=== PATIENT | female | born 1985 | race Caucasian/White ===

== ENCOUNTER 2025-04-04 07:27 | Emergency (ER) | payer OTHER, SELFPAY ==
--- OUTSIDE RECORDS SUMMARY | 2024-02-04 08:30 | XMS_ITS ---
Author Organization [facility] Address [address] [place] [address] Care Team Providers Care Security Assurance Specialist Name Role Phone None, No PCP Primary Care Provider Elsi Aviles Unavailable [phone] Radha Manning Unavailable [phone] REASON FOR VISIT possible anxiety depression 1 of 2 Encounters Encounter Location Date Provider Diagnosis [facility] [address] [place], [place] [address]Ramana VERMA [address] [address] 02/04/2024 Radha Manning Plan Of Treatment Next Appt Details Provider Name:Joselin Drake, 04/05/2025 09:15:00 AM, [address] [place], [address], Provider Name:Joselin Drake, 05/10/2025 02:45:00 PM, [address] [place], [address], Provider Name:Joselin Drake, 06/28/2025 08:30:00 AM, [address] [place], [address], Progress Notes * Angela ELDER:1985 ([age] yo F)Acc No.[id number]:02/04/2024 Patient:?Luly ELDER :?Radha Manning MDDOB:1985???Age:38 Y ???Sex:FemaleDate:4Phone:[phone]:[address] [place], [place] [address]Fwu:No PCP None Subjective: * Chief Complaints: * 1 . Possible anxiety depression 1 of 2. * Medical History: Objective: * Vitals: Assessment: Plan: * Treatment: * Images: Billing Information: * Visit Code: * Procedure Codes: * Electronic signature of Radha Manning MD on 04/04/2025 at 08:24 AM CSTSign off status: Pending * Provider: Melany Manning MD Date: 1 Generated for Printing/Faxing/eTransmitting on:?04/04/2025 08:24 AM GIN FEEDER
--- OUTSIDE RECORDS SUMMARY | 2025-03-03 12:55 | XMS_ITS | Encounter Summary ---
Author Organization [facility] Address [address] [place] [address] Care Team Providers Care Patch Machine Operator Name Role Phone David Hernandez MD Unavailable David Hernandez MD Primary Care Provider [phone] Luly Enrique Unavailable Unavailable Teresita Glez APRN, CNP Unavaila ble David Hernandez MD Unavailable Reason for Referral * Medication Prior Authorization - ClosedSpecialtyDiagnoses / ProceduresReferred By ContactReferred To Contact Diagn[place] [address] [place] [address] Phone: tel: fax: Referral IDStatusReasonStart DateExpiration DateVisits RequestedVisits [id number] APPLICATION DEVELOPER Encounter Details DateTypeDepartmentCare Team (Latest Contact Info)Jwczjuyragz00/14/2025 12:55 PM CSTE-Visit [facility] [address] [place] [address] [place] [address] [place] [address] Weight gain; Panic attack Social History Tobacco UseTypesPacks/DayYears UsedDateSmoking Tobacco: NeverPassive Smoke Exposure: NeverSmokeless Tobacco: NeverAlcohol UseStandard Drinks/WeekComments Yes0 (1 standard drink = 0.6 oz pure alcohol)occPHQ-2AnswerDate RecordedPHQ-2 Jfwlw279dolescent EducationAnswerDate RecordedGetting School Help NeededNot on file01/10/2023Food InsecurityAnswerDate RecordedWithin the past 12 months, did you worry that your food would run out before you got money to buy more?No02/12/2023Within the past 12 months, did the food you bought just not last and you didn???t have money to getmore?No02/12/2023Housing StabilityAnswer Date RecordedDo you have housing? (Housing is defined as stable permanent housing and does not include staying outside in a car, in a tent, in an abandoned building, in an overnight care home, or couch-surfing.)Yes02/12/2023re you worried about losing your housing?No02/12/2023Financial Resource Strain AnswerDate RecordedWithin the past 12 months, have you or your family members you live with been unable to get utilities (heat, electricity) when it was really needed?02/12/2023Transportation NeedsAnswerDate RecordedWithin the past 12 months, has lack of transportation kept you from medical appointments, getting your medicines, non-medical meetings or appointments, work, or from getting things that you need?No02/12/2023Interpersonal SafetyAnswerDate Recorded Do you feel physically and emotionally safe where you currently live?Yes 09/05/2024Within the past 12 months, have you been hit, slapped, kicked or otherwise physically hurt by someone?No09/05/2024Within the past 12 months, have you been humiliated or emotionally abused in other ways by your partner or ex-partner?No09/05/2024CommentsNoSex and Gender InformationValueDate RecordedSex Assigned at ZvxhmMlukjl04/20/2022 10:50 AM CDTLegal SexFemale 07/10/2020 8:13 AM CDTGender JlauxkfsAxpvge20/20/2022 10:50 AM CDTSexual OrientationNot on filedocumented as of this encounter Patient Instructions * Patient Instructions* David Hernandez MD - 03/03/2025 12:55 PM HADOOP APPLICATION DEVELOPER I am glad you are doing well. I have refilled your medication: No orders of the defined types were placed in this encounter. View your full visit summary for details by clicking on the link below. Your pharmacist will be able to address any questions you may have about the medication. Thank you for choosing us for your care. OP APPLICATION DEVELOPER documented in this encounter Miscellaneous Notes * Telephone Encounter - David Hernandez MD - 03/03/2025 12:57 PM CST Provider E-Visit time total (minutes): 5 minutes OP APPLICATION DEVELOPER documented in this encounter Plan of Treatment Not on file documented as of this encounter Visit Diagnoses Diagnosis Weight gain Abnormal weight gain Panic attack Panic disorder without agoraphobia documented in this encounter Additional Health Concerns AssessmentNoted TimePHQ-9 Depression Total Score: 9009/05/2024 7:35 AM CDT documented as of this encounter Care Teams Team MemberRelationshipSpecialtyStart [place] [address] [place] [address] PCP - GeneralFadely Vejncthk80/10/21 [place] [address] [place] [address] Assigned PCP12/06/20 Luly Enrique Personal Advocate & Liaison (PAL)01/29/22 Teresita Glez APRN DEWATERER OPERATOR [address] [facility] [address] Nurse PractitionerNeurology07/06/23 [place] [address] [place] [address] Guido Medicine07/06/23documented as of this encounter
--- OUTSIDE RECORDS SUMMARY | 2025-03-24 07:00 | XMS_ITS ---
Author Organization [facility] Address [address] [place] [address] Care Team Providers Care Varnish Thinner Name Role Phone None, No PCP Primary Care Provider Elsi Aviles Unavailable [phone] Mable Negron Unavailable [phone] REASON FOR VISIT HRT Consult Encounters Encounter Location Date Provider Diagnosis [facility] [address] [place] [address] 03/24/2025 Mable Negron Plan Of Treatment Next Appt Details Provider Name:Joselin Drake, 04/05/2025 09:15:00 AM, [address] [place], [address], Provider Name:Joselin Drake, 05/10/2025 02:45:00 PM, [address] [place], [address], Provider Name:Joselin Drake, 06/28/2025 08:30:00 AM, [address] [place], [address], Progress Notes * Angela ELDER:1985 ([age] yo F)Acc No.[id number]:03/24/2025 Patient:?JERROD Luly :?Mable SheldonleDOB:1985???Age:39 Y ???Sex:FemaleDate:03/24/2025Phone:[phone]:[facility] [address] [place], [place] [address]Khm:No PCP None Subjective: * Chief Complaints: * 1 . HRT Consult. * Medical History: Objective: * Vitals: Assessment: Plan: * Treatment: * Images: Billing Information: * Visit Code: * Procedure Codes: * Electronic signature of GARRETT [place] on 04/04/2025 at 08:24 AM CARPENTER LABOR SUPERVISOR Sign off status: Pending * Provider: Juan Negron Date: 05/25/2024 Generated for Printing/Faxing/eTransmitting on:?04/04/2025 08:24 AM CARPENTER LABOR SUPERVISOR
[2025-04-04] VITALS (18 sets, daily range): BP systolic 126–136; BP diastolic 78–95; PULSE 68–76; RESP 11–21; TEMP 36.4; O2SAT 99; BMI 26.6
--- NOTE | 2025-04-04 08:08 | ED.GENADULT ---
HPI - General Adult General Chief complaint: Dizziness/Vertigo Stated complaint: dizzy, nausea Time Seen by Provider: 04/04/25 07:51 Source: patient Mode of arrival: ambulatory Limitations: no limitations History of Present Illness HPI narrative: 39-year-old female presenting today not feeling well. States that this is day 4. As she complains of feeling lightheaded, dizzy, fatigued. Today she developed nausea. No vomiting. She denies any fevers per states she had cold symptoms last week but they resolved. She states that she just wants to sleep feeling better all day, has no energy. When she does stand up she feels very lightheaded and off balance. She denies any vertiginous symptoms. She denies a headache. She states that every now and then she feels that maybe she has double vision. She states that she also has ringing in her ears but this is not new for her. She denies pain or pressure in her ears. No sore throat. She is not coughing. She is not short of breath. She denies abdominal pain. No urinary symptoms. No diarrhea. Past medical history significant for anxiety, depression, long COVID, chronic fatigue. Her medications were reviewed. Related Data Home Medications ?Medication ?Instructions ?Recorded ?Confirmed gabapentin 100 mg capsule 200 mg PO DAILY 04/04/25 04/04/25 lorazepam 2 mg tablet (Ativan) 2 mg PO Q6H PRN 04/04/25 04/04/25 phentermine 30 mg capsule 30 mg PO DAILY 04/04/25 04/04/25 trazodone 50 mg tablet 50 mg PO DAILY 04/04/25 04/04/25 venlafaxine 75 mg tablet 150 mg PO DAILY 04/04/25 04/04/25 Previous Rx's ?Medication ?Instructions ?Recorded meclizine 25 mg tablet 25 mg PO BID PRN #14 tabs 04/04/25 Allergies Allergy/AdvReac Type Severity Reaction Status Date / Time No Known Drug Allergies Allergy Verified 04/04/25 10:00 Review of Systems Status of ROS: Reports: 10 or more systems reviewed and unremarkable except as noted in History and below Exam Narrative: Exam Narrative: Well-nourished well-developed patient in no acute distress. Alert and oriented. Answers questions appropriately. Mood and affect are appropriate. Thoughts are goal oriented and rational. No tangential or magical thinking noted. Patient speaks in full sentences without needing to catch her breath. HEENT: Normocephalic atraumatic. Pupils are equally round reactive to light. Extraocular muscles are intact. Conjunctivae are moist without any icterus noted. Moist mucous membranes. Posterior pharynx is normal. Neck is soft without any lymphadenopathy or thyromegaly. Delete the Cardiovascular: Heart is regular rate and rhythm S1 and S2 are present without any murmurs. Lungs: Clear to auscultation bilaterally no wheezes rhonchi or rales are appreciated. Patient takes deep breaths without any discomfort. Abdomen: Soft and nontender nondistended with normal bowel sounds. Extremities: Bilateral lower extremities are without edema. Skin: Well perfused without any obvious rashes. Strength is 5/5 of the upper and lower extremities. Reflexes are 2+ and symmetric at the knees. Romberg sign is negative. Cranial nerves 3-12 are normal. Usasqv-zi-hpyv is normal. Ivgj-hm-ojuh is normal. There is no nystagmus either horizontally or vertically. Gait is normal. Const: Vital Signs, click to edit/add: Vital Signs - 24 hr 04/04/25 07:30 04/04/25 08:00 04/04/25 08:46 Temperature 97.5 F L Pulse Rate Pulse Rate [Pulse Oximeter] 76 Respiratory Rate 20 14 Blood Pressure Blood Pressure [Ri ght Upper Arm] 135/95 H Pulse Oximetry 99 99 Oxygen Delivery Me thod Room Air 04/04/25 08:54 Temperature Pulse Rate 68 Pulse Rate [Pulse Oximeter] Respiratory Rate 14 Blood Pressure 132/87 Blood Pressure [Ri ght Upper Arm] Pulse Oximetry Oxygen Delivery Sd thod Course Course ED Course: differential diagnoses includes viral infection, flare up of long COVID symptoms, mononucleosis. Without a headache, no vertigo and no neurologic deficits this is less likely to be stroke related. Blood work was unremarkable. EKG, read by me, shows normal sinus rhythm with a pulse of 62. Normal [place], QRS and QTC intervals. we did start an IV and patient received a L of normal saline and IV Zofran. Patient stated that she did not feel any better after treatment. We discussed next steps including close monitoring in the patient is very concerned about this, she is quite concerned that there is something more going on that we are missing. We discussed doing a head CT and CTA and the likelihood of that pain positive being low but the patient would like to proceed. CT head unremarkable. Vital Signs Vital signs: Initial Vital Signs Temperature 97.5 F L 04/04/25 07:30 Temperature Source Temporal Artery Scan 04/04/25 07:30 Pulse Rate 76 04/04/25 07:30 Respiratory Rate 20 04/04/25 07:30 Blood Pressure 135/95 H 04/04/25 07:30 Blood Pressure Mean 108 H 04/04/25 07:30 Blood Pressure Position Sitting 04/04/25 07:30 Pulse Oximetry 99 04/04/25 07:30 Oxygen Delivery Method Room Air 04/04/25 07:30 Vital Signs Temperature 97.5 F L 04/04/25 07:30 Pulse Rate 76 04/04/25 07:30 Respiratory Rate 20 04/04/25 07:30 Blood Pressure 135/95 H 04/04/25 07:30 Pulse Oximetry 99 04/04/25 07:30 Oxygen Delivery Method Room Air 04/04/25 07:30 Temperature 97.5 F L 04/04/25 07:30 Pulse Rate 68 04/04/25 08:54 Respiratory Rate 14 04/04/25 08:54 Blood Pressure 132/87 04/04/25 08:54 Pulse Oximetry 99 04/04/25 08:00 Oxygen Delivery Method Room Air 04/04/25 07:30 Medications Administered Medications: Discontinued Medications Generic Name Dose Route Start Last Admin Trade Name Freq PRN Reason Stop Dose Admin Sodium Chloride 1,000 mls @ 1,000 mls/hr 04/04/25 08:00 04/04/25 09:21 0.9 % Sodium Chloride 1000 Ml IV 04/04/25 08:59 Infused .Q1H ZORA Infusion Ondansetron HCl 4 mg 04/04/25 07:59 04/04/25 08:35 Ondansetron 2 Mg/Ml Inj IVP 04/04/25 08:00 4 mg ONCE ONE Administration Medical Decision Making MDM Narrative Medical decision making narrative: 39-year-old female, dizzy, fatigue. We discussed the possibility of continued long COVID symptoms. This we discussed the possibility of another viral infection causing her symptoms. Recommend fluids, rest, Tylenol. Patient requesting meclizine which I will go ahead and prescribed. Follow-up with primary care. Lab Data Lab results reviewed: Yes I reviewed the patient's lab results Labs: Lab Results 04/04/25 04/04/25 Range/Units 08:25 09:00 WBC 6.42 (4.50-11.00) K/uL RBC 5.00 (4.00-5.20) m/uL Hgb 14.7 (12.0-16.0) gm/dL Hct 46.2 (33.0-51.0) % MCV 92 (80-100) fL MCH 29 (26-34) pg MCHC 32 (32-36) gm/dL RDW Coeff of Bryan 11.9 (11.5-15.5) % Plt Count 278 (140-440) K/uL Neut % (Auto) 72.6 H (42.0-72.0) % Lymph % (Auto) 15.0 L (20-44) % Kittson % (Auto) 7.2 (0.0-11.0) % Eos % (Auto) 5.0 (0.0-7.0) % Baso % (Auto) 0.2 (0.0-3.0) % Neut # (Auto) 4.70 (1.7-7.0) K/uL Lymph # (Auto) 1.00 (0.90-2.90) K/uL Kittson # (Auto) 0.50 (0.00-0.90) K/UL Eos # (Auto) 0.32 (0.00-0.50) K/uL Baso # (Auto) 0.01 (0.00-0.30) K/uL Abs Immat Gran (auto) 0.00 (0.00-0.30) K/uL Imm/Tot Granulo (auto) 0.0 % Sodium 137 (135-149) mmol/L Potassium 4.1 (3.6-5.1) mmol/L Chloride 106 (96-114) mmol/L Carbon Dioxide 24 (20-32) mmol/L Anion Gap 7 (7-15) mEq/L BUN 20 (5-24) mg/dL Creatinine 0.9 (0.5-1.5) mg/dL Estimated Creat Clear 77.01 Estimated GFR 82 ml/min Glucose 99 (60-115) mg/dL Lactate 0.9 (0.5-1.9) mmol/L Calcium 8.6 (8.4-10.6) mg/dL Magnesium 2.2 (1.5-2.6) mg/dL Total Bilirubin 0.6 (0.1-1.5) mg/dL Direct Bilirubin 0.2 (0.0-0.5) mg/dL AST 31 (12-35) U/L ALT 18 (4-35) U/L Alkaline Phosphatase 54 (40-150) U/L Troponin I < 0.01 (0.01-0.04) ng/mL C-Reactive Protein < 0.5 L (0.5-1.0) mg/dL Total Protein 7.2 (6.0-8.3) g/dL Albumin 4.3 (3.3-5.0) g/dL Lipase 189 (23-300) U/L TSH 1.020 (0.270-4.20) uIU/mL Urine Color Yellow (Yellow) Urine Appearance Clear (Clear) Urine pH 7.0 (5.0-8.5) Ur Specific Colon 1.020 (1.000-1.030) Urine Protein Negative (Negative) Urine Glucose (UA) Negative (Negative) Urine Ketones Negative (Negative) Urine Blood Trace-intact A (Negative) Urine Nitrite Negative (Negative) Urine Bilirubin Negative (Negative) Urine Urobilinogen 0.2 (0.2-1.0) Ur Leukocyte Esterase Negative (Negative) Urine RBC 0-2 (0-2) Urine WBC 0-2 (0-5) Ur Squamous Epith Cells Moderate A (None-Few) Urine Bacteria Few A (None) Urine Yeast Few A (None) Urine HCG, Qual Negative (Negative) SARS-CoV-2 (PCR) Negative SARS-CoV-2 (Negative) Monoscreen Negative (Negative) Influenza Type A (PCR) Negative PCR FLU A (Negative) Influenza Type B (PCR) Negative PCR FLU B (Negative) Imaging Data CT scan - head: Attestation: I have reviewed the pertinent imaging results. Radiologist's impression: TECHNIQUE: CT head without contrast. COMPARISON: None. FINDINGS: CSF spaces: Within normal limits for age. Brain parenchyma and extra-axial spaces: The mcdonald-white differentiation is maintained. No sign of mass, hemorrhage, or midline shift. No extra-axial fluid collection. Skull base and calvarium: The mastoid air cells are clear. Scattered mild paranasal sinus mucosal thickening and small mucous retention cysts. The visualized orbits are grossly unremarkable. No skull fractures. IMPRESSION: No acute intracranial abnormality. ECG Data Attestation: I personally reviewed and interpreted this ECG as follows: Discharge Plan Discharge Clinical Impression: Dizziness, Fatigue Patient Disposition: Home, Self-Care Condition: Stable Additional Instructions: Make sure to stay well hydrated, rest when needed. Meclizine sent to the pharmacy. follow-up with your primary care provider in 24-72 hours. Prescriptions: New meclizine 25 mg tablet 25 mg PO BID PRNQty: 14 0RF No Action venlafaxine 75 mg tablet 150 mg PO DAILY gabapentin 100 mg capsule 200 mg PO DAILY trazodone 50 mg tablet 50 mg PO DAILY lorazepam [Ativan] 2 mg tablet 2 mg PO Q6H PRN phentermine 30 mg capsule 30 mg PO DAILY Rx Instructions: must administer 2 hours after breakfast Follow Up/Referrals: Provider,Not a Local [Primary Care Provider, Family Practice] Stand Alone Forms: Stitch Fix Info Instructions
--- OUTSIDE RECORDS SUMMARY | 2025-04-04 08:24 | XMS_ITS | Patient Health Record ---
Author Organization [facility] Address [address] [place] [address] Care Team Providers Care Rail Car Operator Name Role Phone None, No PCP Primary Care Provider Elsi Aviles Unavailable [phone] Mable Negron Unavailable [phone] Allergies No Known Allergies Reason For Referral No Information Medications Medication SIG (Take, Route, Frequency, Duration) Notes Start Date End Date Status Tylenol Not-TakingMirena (52 MG) 20 MCG/DAYas directed Intrauterineinserted in 2016 ActivealbuterolNot-TakingEffexor XRNot-Hicopumzkisznif84wlTayukaFuqwyqqxvd654um Active Social History Tobacco Use: Social History Observation Description Date Details (start date - stop date) Never Smoker NA - NA Tobacco Use/Smoking Question Answer Notes Are you a nonsmoker Plan Of Treatment Next Appt Details Provider Name:Joselin Drake, 04/05/2025 09:15:00 AM, [address] [place], [address], Provider Name:Joselin Drake, 05/10/2025 02:45:00 PM, [address] [place], [address], Provider Name:Joselin Drake, 06/28/2025 08:30:00 AM, [address] [place], [address], Insurance Providers Payer Name Payer Address Payer Phone Subscriber Number Group Number Insured Name Patient Relationship to Insured Coverage Start Date Coverage End Date [employer] (Ins. Bill) [address] [address] [place], [place] [id number], [employer] - patient is the [id number] 2021 Medical (General) History Medical History History ICD Code Anxiety/Depression InsominaBlood Clots in Legs / LungsMigrainesSurgical History Surgery Date(Month/Year) Woden Teeth
--- OUTSIDE RECORDS SUMMARY | 2025-04-04 08:24 | XMS_ITS | Clinical Summary ---
Author Organization [facility] Address [address] [place] [address] Care Team Providers Care Rock Crusher Name Role Phone David Hernandez MD Unavailable David Hernandez MD Primary Care Provider [phone] Luly Enrique Unavailable Unavailable Teresita Glez APRN, CNP Unavaila ble David Hernandez MD Unavailable Allergies No known active allergies Medications MedicationSigDispense QuantityRefillsLast FilledStart DateEnd DateStatus albuterol (PROAIR HFA/PROVENTIL HFA/VENTOLIN HFA) 108 (90 Base) MCG/ACT inhaler Indications:Post-COVID chronic coughInhale 2 puffs into the lungs every 4 hours as needed for shortness of breath or wheezing 18 g 3Active atorvastatin (LIPITOR) 10 MG tablet Indications:Mixed hyperlipidemiaTake 1 tablet (10 mg) by mouth daily. 90 tablet 5Active traZODone (DESYREL) 50 MG tablet Indications:Insomnia, unspecified typeTake 1 tablet (50 mg) by mouth at bedtime. 90 tablet 5Active venlafaxine (EFFEXOR XR) 150 MG 24 hr capsule Indications:Major depressive disorder, single episode, mildTake 1 capsule (150 mg) by mouth daily. 90 capsule 5Active propranolol (INDERAL) 20 MG tablet Indications:Panic attackTake 1 tablet (20 mg) by mouth every morning. 90 tablet 5Active phentermine (ADIPEX-P) 37.5 MG tablet Indications:Weight gainTake 1 tablet (37.5 mg) by mouth every morning (before breakfast). 30 tablet 5Active LORazepam (ATIVAN) 0.5 MG tablet Indications:Panic attackTake 1 tablet (0.5 mg) by mouth five times a week as needed for anxiety. 30 tablet 5Active gabapentin (NEURONTIN) 100 MG capsule Indications:Post-COVID syndromeTAKE 1 CAPSULE BY MOUTH THREE TIMES A DAY 90 capsule 5Active gabapentin (NEURONTIN) 100 MG capsule Indications:Post-COVID syndromeTake 1 capsule (100 mg) by mouth 3 times daily. 90 capsule Discontinued Active Problems ProblemNoted DateDiagnosed DateMajor depressive disorder, single episode, mild 08/18/2023 Resolved Problems ProblemNoted DateDiagnosed DateResolved DatePulmonary embolism with infarction Encounters DateTypeDepartmentCare IlbgTjeqoupmiyu50/12/2025Refill [facility] [address] [place] [address] David Hernandez MD Medication Gqwfek4203/13/2025[facility] Medical Advice [facility] [address] [place] [address] Corrine Morelos 03/11/2025Refill [facility] [address] [place] [address] David Hernandez MD Medication Ptunkc2703/03/2025 12:55 PM CSTE-Visit [facility] [address] [place] [address] David Hernandez MD Weight gain; Panic mvfmva4303/03/2025[facility] Advice [facility] [address] [place] [address] Radha Fuentes MA 03/03/2025Refill [facility] [address] [place] [address] David Hernandez MD Medication Refillfrom Last 3 Months Immunizations ImmunizationAdministration DatesNext DueCOVID-19 MONOVALENT 12+ (Pfizer) 01/12/2021,12/22/2020Influenza Vaccine >6 months,quad, PF02/05/2022TDAP (Adacel,Boostrix)08/18/2023 Family History Medical HistoryRelationCommentsDiabetesFatherHeart DiseaseFatherHypertension FatherRelationStatusCommentsFatherAliveMotherAliveSisterAlive Social History Tobacco UseTypesPacks/DayYears UsedDateSmoking Tobacco: NeverPassive Smoke Exposure: NeverSmokeless Tobacco: Never Tobacco Cessation:Counseling Given: Not Answered Alcohol UseStandard Drinks/WeekCommentsYes0 (1 standard drink = 0.6 oz pure alcohol)occPHQ-2AnswerDate RecordedPHQ-2 Kwwwz477dolescent Education AnswerDate RecordedGetting School Help NeededNot on file01/10/2023Food InsecurityAnswerDate RecordedWithin the past 12 months, did you worry that your food would run out before you got money to buy more?No02/12/2023Within the past 12 months, did the food you bought just not last and you didn???t have money to getmore?No02/12/2023Housing StabilityAnswerDate RecordedDo you have housing? (Housing is defined as stable permanent housing and does not include staying ou tside in a car, in a tent, in an abandoned building, in an overnight group home, or couch-surfing.)Yes02/12/2023re you worried about losing your housing?No 02/12/2023Financial Resource StrainAnswerDate RecordedWithin the past 12 months, have you or your family members you live with been unable to get utilities (heat, electricity) when it was really needed?No02/12/2023Transportation Needs AnswerDate RecordedWithin the past 12 months, has lack of transportation kept you from medical appointments, getting your medicines, non-medical meetings or appointments, work, or from getting things that you need?No02/12/2023 Interpersonal SafetyAnswerDate RecordedDo you feel physically and emotionally safe where you currently live?Yes09/05/2024Within the past 12 months, have you been hit, slapped, kicked or otherwise physically hurt by someone?No09/05/2024 Within the past 12 months, have you been humiliated or emotionally abused in other ways by your partner or ex-partner?No09/05/2024CommentsNoSex and Gender InformationValueDate RecordedSex Assigned at EfukqBalyww64/20/2022 10:50 AM CDTLegal EkiQrvwjr52/23/2021 8:13 AM CDTGender PlhqfgmsTgencz27/20/2022 10:50 AM CDTSexual OrientationNot on file Last Filed Vital Signs Vital SignReadingTime TakenCommentsBlood Uvshlcvl435/90009/05/2024 9:43 AM CDT Sefqo657909/05/2024 9:43 AM HNODlcprhqcwgd33.8 ??C (98.3 ??F)09/05/2024 9:43 AM CDTRespiratory Ainu751809/05/2024 9:43 AM CDTOxygen Cobcypixdi005%09/05/2024 9:43 AM CDTInhaled Oxygen Concentration--Roodgp87.3 kg (159 lb 4.8 oz)09/05/2024 9:43 AM XXRJgespm307.6 cm (5' 6)09/05/2024 9:43 AM CDTBody Mass Index25.71009/05/2024 9:43 AM CDT Plan of Treatment Health MaintenanceDue DateLast DoneCommentsADVANCE CARE KYCLHOEA26/18/1984 DEPRESSION ACTION PLAN1983MAMMO RZHWQCEUB68/18/1984HEPATITIS B VACCINE (1 of 3 - 19+ 3-dose series)07/05/20021837EGOMR47, 02/27/2021YEARLY PREVENTIVE VISIT/, 05/27/2012NNUAL REVIEW OF HM ORDERS , 02/04/2022OVID-19 VACCINE ( season)2024 02/05/2022, 01/12/2021, 12/22/2020INFLUENZA VACCINE (#1)51 DIABETES IMMFZMLPB81, 02/27/2021, 1PHQ-9105/08/2024 09/05/2024, 08/18/2023, 02/12/2023, Additional history existsHPV TEST03/04/2027 03/04/2022, 03/04/2022PAP17105/04/2021, 03/04/2022, 03/04/2022ZOSTER VACCINE (1 of 2)4DTAP/TDAP/TD VACCINE (2 - Td or Tdap)08/17/2033 08/18/2023HEPATITIS C SCREENINGDiscontinuedHIV SCREENINGDiscontinuedHPV VACCINE (No Doses Required)CompletedMENINGITIS VACCINEAged OutNo longer eligible based on patient's age to complete this topicPNEUMOCOCCAL VACCINE: PEDIATRICS (0 to 5 YEARS) AND AT-RISK PATIENTS (6 to 49 YEARS)Aged OutNo longer eligible based on patient's age to complete this topic Procedures Procedure NamePriorityDate/TimeAssociated DiagnosisCommentsABSTRACT PAP ([facility] EXTERNAL RESULT)Juvshur3703/04/2022 4:03 PM IMMIGRATION INVESTIGATOR ABSTRACT HPV ([facility] EXTERNAL RESULT)Qzsssph9403/04/2022 4:03 PM IMMIGRATION INVESTIGATOR COMPREHENSIVE METABOLIC KLIVKMpwmmlj82/18/2022 8:47 AM CDT 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 concentration deficit Post-COVID chronic decreased mobility and endurance Post-COVID chronic fatigue Post-COVID chronic headache Vitamin D deficiency Long COVID LIPID REFLEX TO DIRECT LDL MFXSSOnzamns23/18/2022 8:47 AM CDT Post-COVID syndrome from Last 3 Months or Most Recently Relevant to Health Maintenance Results * Abstract HPV ([facility] External Result) (03/04/2022 4:03 PM IMMIGRATION INVESTIGATOR)ComponentValueRef RangeTest MethodAnalysis TimePerformed AtPathologist SignatureHPV AbstractSee Scanned DocumentQUEST SCHAUMBURGSpecimen (Source)Anatomical Location / LateralityCollection Method / VolumeCollection TimeReceived Time03/04/2022 4:03 PM IMMIGRATION INVESTIGATOR Narrative [facility] [place] - 03/04/2022 4:03 PM IMMIGRATION INVESTIGATOR [facility] RESULT Authorizing ProviderResult TypeResult StatusProvider OutsideLAB - [facility] EXTERNAL RESULTFinal ResultPerforming OrganizationAddressCity/State/ZIP CodePhone Number RODNEY BERGERON [address] [place] [address] * Abstract PAP ([facility] External Result) (03/04/2022 4:03 PM IMMIGRATION INVESTIGATOR)ComponentValueRef RangeTest MethodAnalysis TimePerformed AtPathologist SignaturePAP-ABSTRACTSee Scanned DocumentQUEST SCHAUMBURGSpecimen (Source)Anatomical Location / LateralityCollection Method / VolumeCollection TimeReceived Time03/04/2022 4:03 PM IMMIGRATION INVESTIGATOR Narrative [facility] HEARN[place] - 03/04/2022 4:03 PM IMMIGRATION INVESTIGATOR [facility] RESULT Authorizing ProviderResult TypeResult StatusProvider OutsideLAB - [facility] EXTERNAL RESULTFinal ResultPerforming OrganizationAddressCity/State/ZIP CodePhone Number RODNEY BERGERON [address] [place] [address] * (ABNORMAL) Lipid panel reflex to direct LDL Fasting (02/04/2022 8:47 AM CDT) ComponentValueRef RangeTest MethodAnalysis TimePerformed AtPathologist ClehritdqBfqfsozgmno348(H)<200 mg/dL02/04/2022 5:25 PM CDTOX LABORATORY Zgwdjrzlectjt62<150 mg/dL02/04/2022 5:25 PM CDTOX LABORATORYDirect Measure HDL 68>=50 mg/dL02/04/2022 5:25 PM CDTOX LABORATORYLDL Cholesterol Vkzqsrdafp069 (H)<=100 mg/dL02/04/2022 5:25 PM CDTOX LABORATORYNon HDL Nrbxwzunbtz368(H)<130 mg/dL02/04/2022 5:25 PM CDTOX LABORATORYPatient Fasting > 8hrs?Unknown 02/04/2022 5:25 PM CDTOX LABORATORYSpecimen (Source)Anatomical Location / LateralityCollection Method / VolumeCollection TimeReceived TimeBloodBLOOD SPECIMEN / UnknownVenipuncture / Haqxxcv0002/04/2022 8:47 AM CDT1 8:47 AM CDT Narrative LABORATORY - 02/04/2022 5:25 PM CDT Cholesterol Desirable: <200 mg/dL Triglycerides Normal: ??Less than 150 mg/dL Borderline High: ??150-199 mg/dL High: ??200-499 mg/dL Very High: ??Greater than or equal to 500 mg/dL Direct Measure HDL Female: ??Greater than or equal to 50 mg/dL Male: ??Greater than or equal to 40 mg/dL LDL Cholesterol Desirable: <100mg/dL Above Desirable: ??100-129 mg/dL Borderline High: ??130-159 mg/dL High: ??160-189 mg/dL Very High: >= 190 mg/dL Non HDL Cholesterol Desirable: ??130 mg/dL Above Desirable: ??130-159 mg/dL Borderline High: ??160-189 mg/dL High: ??190-219 mg/dL Very High: ??Greater than or equal to 220 mg/dL Authorizing ProviderResult TypeResult StatusDavid Hernandez MDLAB - BLOOD ORDERABLES Final ResultPerforming OrganizationAddressCity/State/ZIP CodePhone Number [facility] [address] Lab (no room number, 1st floor of clinic) [place] [address], [facility] [phone] * Comprehensive metabolic panel (02/04/2022 8:47 AM CDT)ComponentValueRef Range Test MethodAnalysis TimePerformed AtPathologist IukxlmnohAixxlp882496 - 144 mmol/L1 5:24 PM CDTOX LABORATORYPotassium (POCT)4.23.4 - 5.3 mmol/L 02/04/2022 5:24 PM CDTOX LABORATORYChloride (POCT)31828 - 109 mmol/L1 5:24 PM CDTOX LABORATORYCarbon Dioxide (CO2) (POCT)2320 - 32 mmol/L1 5:24 PM CDTOX LABORATORYAnion Gap (POCT)83 - 14 mmol/L1 5:24 PM CDTOX LABORATORYUrea Nitrogen (POCT)177 - 30 mg/dL02/04/2022 5:24 PM CDTOX LABORATORYCreatinine0.790.52 - 1.04 mg/dL02/04/2022 5:24 PM CDTOX LABORATORY Calcium8.98.5 - 10.1 mg/dL02/04/2022 5:24 PM CDTOX LABORATORYGlucose (POCT)89 70 - 99 mg/dL02/04/2022 5:24 PM CDTOX LABORATORYAlkaline Nihcjjqmoiz7397 - 150 U/L1 5:24 PM CDTOX EJOUQXKSOAIKN428 - 45 U/L1 5:24 PM CDTOX OCJIBLWRVAUKB382 - 50 U/L1 5:24 PM CDTOX LABORATORYProtein Total7.9 6.8 - 8.8 g/dL02/04/2022 5:24 PM CDTOX LABORATORYAlbumin (POCT)4.53.4 - 5.0 g/dL02/04/2022 5:24 PM CDTOX LABORATORYBilirubin Total0.40.2 - 1.3 mg/dL 02/04/2022 5:24 PM CDTOX LABORATORYGFR Estimate>90>60 mL/min/1.52s11802/04/2022 5:24 PM CDTOX LABORATORYComment:Effective April 09, 2021 eGFRcr in adults is calculated using the 2020 CKD-EPI creatinine equation which includes age and gender (Jeff et al., NEJM, DOI: 10.1056/LHELbc0539685)Specimen (Source) Anatomical Location / LateralityCollection Method / VolumeCollection Time Received TimeBloodBLOOD SPECIMEN / UnknownVenipuncture / Fijhbsk7302/04/2022 8:47 AM CDT1 8:47 AM CDT Narrative Authorizing ProviderResult TypeResult StatusSaramandeep Navas MDLAB - BLOOD ORDERABLESFinal ResultPerforming OrganizationAddressCity/State/ZIP CodePhone Number [facility] [address] Lab (no room number, 1st floor of clinic) [place] [address], [facility] [phone] from Last 3 Months or Most Recently Relevant to Health Maintenance Insurance Care Teams Team MemberRelationshipSpecialtyStart [place] [address] [place] [address] PCP - GeneralFamily Peumvycj99/10/21 [place] [address] [place] [address] Assigned PCP12/06/20 Luly Enrique Personal Advocate & Liaison (PAL)01/29/22 Teresita Glez APRN UPPER AND BOTTOM LACER HAND [address] [facility] [address] Nurse PractitionerNeurology07/06/23 [place] [address] [place] [address] Guido Leiva07/06/23
--- OUTSIDE RECORDS SUMMARY | 2025-04-04 08:24 | XMS_ITS | Clinical Summary ---
Author Organization [facility] Address [address] [place] [address] Care Team Providers Care Milliner Helper Name Role Phone Pcp, No Primary Care Provider Unavailabl e Medications MedicationSigDispense QuantityRefillsLast FilledStart DateEnd DateStatus gabapentin (NEURONTIN) 100 mg capsule Take 100 mg by mouth three times daily.5Active phentermine (ADIPEX-P) 37.5 mg tablet Take 37.5 mg by mouth.5Active venlafaxine (EFFEXOR XR) 150 mg Extended-Release capsule Take 150 mg by mouth.5Active traZODone (DESYREL) 50 mg tablet Take 50 mg by mouth at bedtime.5Active LORazepam (ATIVAN) 0.5 mg tab Take 0.5 mg by mouth one time if needed.5Active Active Problems No known active problems Encounters DateTypeDepartmentCare QdbmLqgfsriiyxa10/15/2025Telephone [facility] [address] [place], [place] [phone] Lizbet Roman PA Dizziness (Triage)03/11/2025 1:30 PM CSTOffice Visit [facility] [place] [address] [place] [address] Vanesa Darby NP Finger Loukmutosu33/22/2025Travelfrom Last 3 Months Social History Tobacco UseTypesPacks/DayYears UsedDateSmoking Tobacco: NeverSmokeless Tobacco: Never Tobacco Cessation:Counseling Given: Not Answered CommentsUnknownSex and Gender InformationValueDate RecordedSex Assigned at BirthNot on fileLegal HekXgpkjn39/22/2025 1:14 PM CSTGender IdentityNot on fileSexual OrientationNot on file Last Filed Vital Signs Vital SignReadingTime TakenCommentsBlood Pressure--Gigbi742503/11/2025 2:08 PM PRESALES ENGINEER Qzeksgkxikk10.6 ??C (97.8 ??F)03/11/2025 2:08 PM CSTRespiratory Gguk572805/11/2024 2:08 PM CSTOxygen Kjphtpuydx061%03/11/2025 2:08 PM CSTInhaled Oxygen Concentration--Weight--Height--Body Mass Index-- Plan of Treatment DateTypeDepartmentCare Team (Latest Contact Info)Qehfbolemcn21/16/2025 1:25 PM CSTOffice Visit [facility] [place] [address] [facility] [place] [address] [place] [address] [place] [address] Health MaintenanceDue DateLast DoneCommentsTetanus zwfwsdw6307/05/1994Depression screening for age 12+1995HIV for age 15-65007/05/1998BMI (ht and wt on same day) for age 18+07/05/2001Hepatitis C screening for age 18-7907/05/2001Hepatitis B series for 19+ (1 of 3 - 19+ 3-dose series)07/05/2002Pap test for age 21-65 07/05/2004HPV series for age 9-45 (1 - 3-dose SCDM series)07/05/2010COVID-19 vaccine series (2024- season), 01/12/2021, 12/22/2020 Influenza Vaccine (#1)2024Pneumococcal series for age 6-49Aged OutNo longer eligible based on patient's age to complete this topic Insurance * Guarantor: Luly Elder TypeRelation to PatientDate of BirthPhone Billing AddressPersonal/WygoktOiti53/18/1986 [address] [place] [address] [place] [address] Care Teams Team MemberRelationshipSpecialtyStart DateEnd Date Pcp, Jenn GOMEZ - Bipkmfv81/22/25
--- OUTSIDE RECORDS SUMMARY | 2025-04-04 08:24 | XMS_ITS | Patient Health Record ---
Author Organization [facility] Address [address] [id number] Care Team Providers Care Stoneworking Sander Name Role Phone SELECT, PROVIDER Primary Care Provider Unavailab le Reason For Referral No Information Medications Medication SIG (Take, Route, Frequency, Duration) Notes Start Date End Date Status Tylenol 325 MG Tablet 2 tab(s) orally every 4 ho urs prn 08/13/2015Not-TakingAcyclovir 400 MG Tablet1 tab(s) orally 3 times a day; Duration: 5 days05/31/2012Not-TakingCitalopram Hydrobromide 10 MG Tablet1 tab(s) orally once a day02/02/2011Not-TakingOmeprazole 20 MG Capsule Delayed Release1 cap(s) orally once a day07/30/2015Not-TakingMirtazapine 15 MG Tablet1 tab(s) orally once a day (at bedtime); Duration: 30 day(s)08/20/2016Not-Taking Social History Social History Additional DetailsCategorySocial InfoOptionsDetailsSocial HistoryOccupation: full-time at [employer] accountingAlcohol:rareExercise:yesCaffeine:noMarital StatusMarried (Wilbert), 2 childrenPrimary language spoken:EnglishSeat belt use: yes, 100 %Do you feel safeyesLiving Situationlives with spouse and childrenRace /White Problems Problem Type SNOMED Code ICD Code Onset Dates Problem Status W/U Status Risk Notes Problem Major depression, si ngle episode (59016266) Major depression, single episode NOS (296.20) ActiveconfirmedProblemPulmonary embolism with infarction (5570880884455) Pulmonary embolism and infarction, other (415.19)ActiveconfirmedProblemLong-term current use of anticoagulant (188385740)Encounter for long-term (current) use of anticoagulants (V58.61)ActiveconfirmedProblemAnxiety (42387361)Anxiety (F41.9) ActiveconfirmedProblemChronic fatigue syndrome (09299538)Chronic fatigue (R53.82)Activeconfirmed Plan Of Treatment No Information Insurance Providers Payer Name Payer Address Payer Phone Subscriber Number Group Number Insured Name Patient Relationship to Insured Coverage Start Date Coverage End Date [employer] PAS[employer]ORT [address] [address] [place] [address] [id number] Wilbert Elder Spouse - patient is the spouse of the insured 6 Medical (General) History Medical History History ICD Code Depression Pulmonary emboli, unknown etiology with negative workup, 2009, evaluated by hematologyMirena IUD - placed 12/2008Hospitalization History Reason Date(Month/Year) childbirth pulmonary emboli07/28
--- OUTSIDE RECORDS SUMMARY | 2025-04-04 08:25 | XMS_ITS | Encounter Summary ---
Author Organization [facility] Address [address] [place] [address] Care Team Providers Care Wood Drilling Machine Operator Name Role Phone David Hernandez MD Unavailable David Hernandez MD Primary Care Provider [phone] Luly Enrique Unavailable Unavailable Teresita Glez APRN, CNP Unavaila ble David Hernandez MD Unavailable Reason for Visit * ReasonCommentsMedication Refill Encounter Details DateTypeDepartmentCare Team (Latest Contact Info)Twmxmadgzun43/14/2025Jose Manuel Martin [facility] [address] [place] [address] [place] [address] [place] [address] Medication Refill Social History Tobacco UseTypesPacks/DayYears UsedDateSmoking Tobacco: NeverPassive Smoke Exposure: NeverSmokeless Tobacco: NeverAlcohol UseStandard Drinks/WeekComments Yes0 (1 standard drink = 0.6 oz pure alcohol)occPHQ-2AnswerDate RecordedPHQ-2 Gdboq224dolescent EducationAnswerDate RecordedGetting School Help NeededNot on file01/10/2023Food [...] in an abandoned building, in an overnight intermediate, or couch-surfing.)Yes02/12/2023re you worried about losing your housing?No02/12/2023Financial Resource Strain AnswerDate RecordedWithin the past 12 months, have you or your family members you live with been unable to get utilities (heat, electricity) when it was really needed?No02/12/2023Transportation NeedsAnswerDate RecordedWithin the past 12 months, has [...] ex-partner?No09/05/2024CommentsNoSex and Gender InformationValueDate RecordedSex Assigned at KtujmXaafrz78/20/2022 10:50 AM CDTLegal SexFemale 07/10/2020 8:13 AM CDTGender WshuwoctHugtvt06/20/2022 10:50 AM CDTSexual OrientationNot on filedocumented as of this encounter Miscellaneous Notes * Telephone Encounter - David Hernandez MD - 03/03/2025 12:03 PM CST Controlled substance to discuss; please have patient send e visit or schedule a double book virtualvisit to discuss zg REPAIR PERSON documented in this encounter Plan of Treatment Not on file documented as of this encounter Visit Diagnoses Diagnosis Weight gain Abnormal weight gain Panic attack Panic disorder without agoraphobia documented in this encounter Additional Health Concerns AssessmentNoted TimePHQ-9 Depression Total Score: 9009/05/2024 7:35 AM CDT documented as of this encounter Care Teams Team MemberRelationshipSpecialtyStart [place] [address] [place] [address] [facility] Uhmyjpiu79/10/21 [place] [address] [place] [address] Assigned PCP12/06/20 Luly Enrique Personal Advocate & Liaison (PAL)01/29/22 Teresita Glez APRN TURRET PUNCH PRESS OPERATOR [address] [place], [place] [address] [address] Nurse PractitionerNeurology07/06/23 [place] [address] [place] [address] Bethmdroberto Medicine07/06/23documented as of this encounter
--- OUTSIDE RECORDS SUMMARY | 2025-04-04 08:25 | XMS_ITS | Encounter Summary ---
Author Organization [facility] Address [address] [place] [address] Care Team Providers Care Housekeeping And Laundry Team Leader Name Role Phone David Hernandez MD Unavailable David Hernandez MD Primary Care Provider [phone] Luly Enrique Unavailable Unavailable Teresita Glez APRN, CNP Unavaila ble David Hernandez MD Unavailable Encounter Details DateTypeDepartmentCare Team (Latest Contact Info)Lglefljqbtf31/14/2025[facility] Medical Advice [facility] [address] [place] [address] Radha Fuentes MA Social History Tobacco UseTypesPacks/DayYears UsedDateSmoking Tobacco: NeverPassive Smoke Exposure: NeverSmokeless Tobacco: NeverAlcohol UseStandard Drinks/WeekComments Yes0 (1 standard drink = 0.6 oz pure alcohol)occPHQ-2AnswerDate RecordedPHQ-2 Kqflw774dolescent EducationAnswerDate RecordedGetting School Help NeededNot on file01/10/2023Food [...] in an abandoned building, in an overnight chcf, or couch-surfing.)Yes02/12/2023re you worried about losing your [...] ex-partner?No09/05/2024CommentsNoSex and Gender InformationValueDate RecordedSex Assigned at OffoiJplexp81/20/2022 10:50 AM CDTLegal SexFemale 07/10/2020 8:13 AM CDTGender JjdugfauJhkjlr37/20/2022 10:50 AM CDTSexual OrientationNot on filedocumented as of this encounter Plan of Treatment Not on file documented as of this encounter Visit Diagnoses Not on filedocumented in this encounter Additional Health Concerns AssessmentNoted TimePHQ-9 Depression Total Score: 9009/05/2024 7:35 AM CDT documented as of this encounter Care Teams Team MemberRelationshipSpecialtyStart [place] [address] [place] [address] PCP - GeneralFamily Azfhfvvl21/10/21 [place] [address] [place] [address] Assigned PCP12/06/20 Luly Enrique Personal Advocate & Liaison (PAL)01/29/22 Teresita Glez APRN CNP [address] [facility] [address] Nurse PractitionerNeurology07/06/23 [place] [address] [place] [address] Guido Leiva07/06/23documented as of this encounter
--- OUTSIDE RECORDS SUMMARY | 2025-04-04 08:25 | XMS_ITS | Encounter Summary ---
Author Organization [facility] Address [address] [place] [address] Care Team Providers Care Brush Painter Name Role Phone David Hernandez MD Unavailable David Hernandez MD Primary Care Provider [phone] Luly Enrique Unavailable Unavailable Teresita Glez APRN, CNP Unavaila ble David Hernandez MD Unavailable Encounter Details DateTypeDepartmentCare Team (Latest Contact Info)Cantyhzsdxu70/24/2025[facility] Medical Advice M [facility] [address] [place] [phone] Corrien Morelos Social History Tobacco UseTypesPacks/DayYears UsedDateSmoking Tobacco: NeverPassive Smoke Exposure: NeverSmokeless Tobacco: NeverAlcohol UseStandard Drinks/WeekComments Yes0 (1 standard drink = 0.6 oz pure alcohol)occPHQ-2AnswerDate RecordedPHQ-2 Bufpe256dolescent EducationAnswerDate RecordedGetting School Help NeededNot on file01/10/2023Food [...] ex-partner?No09/05/2024CommentsNoSex and Gender InformationValueDate RecordedSex Assigned at TuftqDnuxxy37/20/2022 10:50 AM CDTLegal SexFemale 07/10/2020 8:13 AM CDTGender OirxyanaAhxnjw13/20/2022 10:50 AM CDTSexual OrientationNot on filedocumented as of this encounter Plan of Treatment Not on file documented as of this encounter Visit Diagnoses Not on filedocumented in this encounter Additional Health Concerns AssessmentNoted TimePHQ-9 Depression Total Score: 9009/05/2024 7:35 AM CDT documented as of this encounter Care Teams Team MemberRelationshipSpecialtyStart [place] [address] [place] [address] PCP - GeneralFamily Ewepslfe09/10/21 [place] [address] [place] [address] Assigned PCP12/06/20 Luly Enrique Personal Advocate & Liaison (PAL)01/29/22 Teresita Glez APRN CNP [address] [facility], [place] [address] Nurse PractitionerNeurology07/06/23 [place] [address] [place] [address] Guido Leiva07/06/23documented as of this encounter
--- OUTSIDE RECORDS SUMMARY | 2025-04-04 08:25 | XMS_ITS | Encounter Summary ---
Author Organization [facility] Address [address] [place] [address] Care Team Providers Care Assembly Adjuster Name Role Phone David Hernandez MD Unavailable David Hernandez MD Primary Care Provider [phone] Luly Enrique Unavailable Unavailable Teresita Glez APRN, CNP Unavaila ble David Hernandez MD Unavailable Reason for Visit * ReasonCommentsMedication Refill Encounter Details DateTypeDepartmentCare Team (Latest Contact Info)Bvhsspzohth79/22/2025Jose Manuel Martin [facility] [id number] [place] [phone] [place] [address] [place] [address] Medication Refill Social History Tobacco UseTypesPacks/DayYears UsedDateSmoking Tobacco: NeverPassive Smoke Exposure: NeverSmokeless Tobacco: NeverAlcohol UseStandard Drinks/WeekComments Yes0 (1 standard drink = 0.6 oz pure alcohol)occPHQ-2AnswerDate RecordedPHQ-2 Rjwbr809dolescent EducationAnswerDate RecordedGetting School Help NeededNot on file01/10/2023Food [...] in an abandoned building, in an overnight correction, or couch-surfing.)Yes02/12/2023re you worried about losing your [...] ex-partner?No09/05/2024CommentsNoSex and Gender InformationValueDate RecordedSex Assigned at GfmdsUrlpwb98/20/2022 10:50 AM CDTLegal SexFemale 07/10/2020 8:13 AM CDTGender XplnnzjbKhywes37/20/2022 10:50 AM CDTSexual OrientationNot on filedocumented as of this encounter Miscellaneous Notes * Telephone Encounter - Radha Fuentes MA - 03/15/2025 8:26 AM CST Letter mailed. Radha Fuentes, [employer] * Telephone Encounter - Radha Fuentes MA - 03/14/2025 8:54 AM CST Left message to call back. Radha Fuentes, [employer] documented in this encounter Plan of Treatment Not on file documented as of this encounter Visit Diagnoses Not on filedocumented in this encounter Additional Health Concerns AssessmentNoted TimePHQ-9 Depression Total Score: 9009/05/2024 7:35 AM CDT documented as of this encounter Care Teams Team MemberRelationshipSpecialtyStart [place] [address] [place] [address] [facility] Bznrxglu86/10/21 [place] [address] [place] [address] Assigned PCP12/06/20 Luly Enrique Personal Advocate & Liaison (PAL)01/29/22 Teresita Glez APRN GLUE CLAMP OPERATOR [address] [facility] [address] Nurse PractitionerNeurology07/06/23 [place] [address] [place] [address] [facility] Medicine07/06/23documented as of this encounter
--- OUTSIDE RECORDS SUMMARY | 2025-04-04 08:25 | XMS_ITS | Encounter Summary ---
Author Organization [facility] Address [address] [place] [address] Care Team Providers Care Administration Physician Name Role Phone David Hernandez MD Unavailable David Hernandez MD Primary Care Provider Luly Enrique Unavailable Unavailable Teresita Glez APRN, CNP Unavaila ble David Hernandez MD Unavailable Reason for Visit * ReasonCommentsMedication Refill Encounter Details DateTypeDepartmentCare Team (Latest Contact Info)Igqpuplhlon73/12/2025Jose Manuel Martin [facility] [address] [place] [phone] [place] [address] [place] [address] Medication Refill Social History Tobacco UseTypesPacks/DayYears UsedDateSmoking Tobacco: NeverPassive Smoke Exposure: NeverSmokeless Tobacco: NeverAlcohol UseStandard Drinks/WeekComments Yes0 (1 standard drink = 0.6 oz pure alcohol)occPHQ-2AnswerDate RecordedPHQ-2 Qporf197dolescent EducationAnswerDate RecordedGetting School Help NeededNot on file01/10/2023Food [...] in an abandoned building, in an overnight fci, or couch-surfing.)Yes02/12/2023re you worried about losing your [...] ex-partner?No09/05/2024CommentsNoSex and Gender InformationValueDate RecordedSex Assigned at OkhmgSmartv41/20/2022 10:50 AM CDTLegal SexFemale 07/10/2020 8:13 AM CDTGender VobgtyfeAelydx11/20/2022 10:50 AM CDTSexual OrientationNot on filedocumented as of this encounter Plan of Treatment Not on file documented as of this encounter Visit Diagnoses Diagnosis Post-COVID syndrome documented in this encounter Additional Health Concerns AssessmentNoted TimePHQ-9 Depression Total Score: 9009/05/2024 7:35 AM CDT documented as of this encounter Care Teams Team MemberRelationshipSpecialtyStart [place] [address] [place] [address] PCP - GeneralFamily Aordtwzu78/10/21 [place] [address] [place] [address] Assigned PCP12/06/20 Luly Enrique Personal Advocate & Liaison (PAL)01/29/22 Teresita Glez APRN [employer] P[employer]DER [employer]ING LEADER [address] [place] [address] [id number] [place] [address] Nurse PractitionerNeurology07/06/23 [place] [address] [place] [address] [facility] Medicine07/06/23documented as of this encounter
[2025-04-04] MEDS: ONDANSETRON 2 MG/ML inj 4 MG IVP (08:35)
[2025-04-04 08:41] LABS: Hematocrit* 46.2 % (33.0-51.0); Hemoglobin* 14.7 gm/dL (12.0-16.0); Immature Granulocytes Abs Auto 0.00 K/uL (0.00-0.30); Immature Granulocytes Pct Auto 0.0 %; Mean Corpuscular HGB Conc 32 gm/dL (32-36); Mean Corpuscular Hemoglobin 29 pg (26-34); Mean Corpuscular Volume 92 fL (80-100); RDW Coefficient of Variation % 11.9 % (11.5-15.5); Red Blood Count* 5.00 m/uL (4.00-5.20); White Blood Count* 6.42 K/uL (4.50-11.00)
[2025-04-04 08:45] LABS: Lactate* 0.9 mmol/L (0.5-1.9)
[2025-04-04 08:46] LABS: Lymphocytes Absolute Auto 1.00 K/uL (0.90-2.90); Slide Review Reflex No
[2025-04-04 08:57] LABS: Mono Screen* Negative (Negative)
[2025-04-04 08:59] LABS: Albumin* 4.3 g/dL (3.3-5.0)
[2025-04-04 09:00] LABS: Chloride* 106 mmol/L (96-114); Potassium* 4.1 mmol/L (3.6-5.1); Sodium* 137 mmol/L (135-149)
[2025-04-04 09:02] LABS: Blood Urea Nitrogen* 20 mg/dL (5-24); Creatinine* 0.9 mg/dL (0.5-1.5); Est. Creatinine Clearance* 77.01; Estimated Glomerular Filt Rate 82 ml/min
[2025-04-04 09:03] LABS: Alanine Aminotransferase* 18 U/L (4-35); Alkaline Phosphatase* 54 U/L (40-150); Anion Gap 7 mEq/L (7-15); Aspartate Amino Transferase* 31 U/L (12-35); Bilirubin Direct* 0.2 mg/dL (0.0-0.5); Bilirubin Total* 0.6 mg/dL (0.1-1.5); Calcium* 8.6 mg/dL (8.4-10.6); Carbon Dioxide* 24 mmol/L (20-32); Glucose* 99 mg/dL (60-115); Total Protein* 7.2 g/dL (6.0-8.3)
[2025-04-04 09:12] LABS: Appearance Urine Clear (Clear)
[2025-04-04 09:14] LABS: Ur HCG Qualitative* Negative (Negative)
[2025-04-04 09:19] LABS: PCR FLU A Negative PCR FLU A (Negative); PCR FLU B Negative PCR FLU B (Negative); SARS PCR* Negative SARS-CoV-2 (Negative)
--- NOTE | 2025-04-04 09:32 | CRLHL7_ITS ---
For Patients: As a result of the Century Cures Act, medical imaging exams and procedure reports are released immediately into your electronic medical record. You may view this report before your referring provider. If you have questions, please contact your health care provider. INDICATION: Dizziness. TECHNIQUE: CTA head using intravenous contrast with bolus tracking, 3D angiographic rendering using maximum intensity projection (MIP) and images permanently archived. CTA neck using intravenous contrast with bolus tracking, 3D angiographic rendering using maximum intensity projection (MIP) and images permanently archived. FINDINGS: CTA head: There is normal opacification of the intracranial vasculature. There is no large vessel occlusion or significant intracranial stenosis. No aneurysm is identified. CTA neck: There is no significant carotid artery stenosis or dissection. There is no significant vertebral artery stenosis or dissection. IMPRESSION: No acute intracranial abnormality at CTA. No significant carotid or vertebral artery stenosis or dissection. Please note that all CT scans at this facility use dose modulation, iterative reconstruction, and/or weight-based dosing when appropriate to reduce radiation dose to as low as reasonably achievable. Dictated by Jt Arreola MD @ 04/04/2025 12:31:06 PM (Electronically Signed)
--- NOTE | 2025-04-04 09:32 | CRLHL7_ITS ---
For Patients: As a result of the Century Cures Act, medical imaging exams and procedure reports are released immediately into your electronic medical record. You may view this report before your referring provider. If you have questions, please contact your health care provider. INDICATION: Dizziness for 3 days, now the same as normal vertigo, nausea, vomiting TECHNIQUE: CT head without contrast. COMPARISON: None. FINDINGS: CSF spaces: Within normal limits for age. Brain parenchyma and extra-axial spaces: The mcdonald-white differentiation is maintained. No sign of mass, hemorrhage, or midline shift. No extra-axial fluid collection. Skull base and calvarium: The mastoid air cells are clear. Scattered mild paranasal sinus mucosal thickening and small mucous retention cysts. The visualized orbits are grossly unremarkable. No skull fractures. IMPRESSION: No acute intracranial abnormality. Please note that all CT scans at this facility use dose modulation, iterative reconstruction, and/or weight-based dosing when appropriate to reduce radiation dose to as low as reasonably achievable. Dictated by Amirah Rodriguez MD @ 04/04/2025 10:05:34 AM (Electronically Signed)
== END 2025-04-04 11:49 | disposition home or self-care (01) ==
PROVIDERS: Emergency Provider Family Medicine
DX: R42 Dizziness and giddiness (principal); R53.83 Other fatigue
CPT/HCPCS: 36415; 70450; 70496; 70498; 80048; 80076; 81001; 81025; 83605; 83690; 83735; 84443; 84484; 85025; 86140; 86308; 87086; 87636; 93005; 94761; 96361; 96374; 99284; 99285; J2405; J7030; Q9967